=== PATIENT | female | born 1960 | race Caucasian/White ===

== ENCOUNTER 2023-06-09 10:56 | Day surgery (SDC) | payer MEDICARE, OTHER, SELFPAY ==
[2023-06-09 11:00] VITALS: BP 124/80; PULSE 92; RESP 25; TEMP 36.4; O2SAT 90
[2023-06-09] MEDS: Tropicam./Phenyleph. (1/2.5%) 5 ML BTL OS ×3 (11:13→11:27)
--- NOTE | 2023-06-09 11:31 | W.ANESPRE ---
General Info Date of Service Date Performed: 06/09/23 Height: 5 ft 1 in Weight: 119.5 kg Body Mass Index (BMI): 49.8 Surgical Procedure: Operation Date: 06/09/23 12:55 Proposed Procedure Side Surgeon p Cataract Extraction with IOL Implant Left Tomas Birmingham MD Meds Allergies and Home Medications Allergies Allergy/AdvReac Type Severity Reaction Status Date / Time No Known Allergies Allergy Unverified 06/09/23 11:06 Home Medication Medication Instructions Recorded aclidinium bromide 400 1 puff inhalation BID 06/30/15 mcg/actuation breath activated powder inhaler (Tudorza Pressair) albuterol sulfate 90 mcg/actuation 2 puff inhalation .Q4HRS PRN 06/30/15 aerosol inhaler (ProAir HFA) aspirin 325 mg tablet 325 mg PO DAILY 06/30/15 citalopram 40 mg tablet (Celexa) 40 mg PO DAILY 06/30/15 clonazepam 1 mg tablet 1 mg PO HS 06/30/15 esomeprazole magnesium 40 mg 40 mg PO DAILY 06/30/15 capsule,delayed release (Nexium) hydrocodone 5 mg-acetaminophen 325 1 tab PO DAILY PRN 06/30/15 mg tablet meclizine 25 mg tablet 25 mg PO BID 06/30/15 naproxen sodium 220 mg capsule 220 mg PO DAILY 06/30/15 (Aleve) ondansetron HCl 4 mg tablet 4 mg PO BID PRN 06/30/15 penciclovir 1 % topical cream 1 applic topical TID 06/30/15 (Denavir) ranitidine HCl 150 mg tablet 150 mg PO BID 06/30/15 (Zantac) ropinirole 4 mg tablet (Requip) 4 mg PO DAILY 06/30/15 spironolactone 25 mg tablet 25 mg PO BID 06/30/15 trazodone 50 mg tablet 50 mg PO HS 06/30/15 gabapentin 100 mg capsule 100 - 300 mg PO TID 08/04/15 duloxetine 30 mg capsule,delayed 60 mg PO DAILY 02/08/23 release empagliflozin 10 mg tablet 10 mg PO DAILY 02/08/23 (Jardiance) metformin 500 mg tablet 500 mg PO BID 02/08/23 metolanzone See Rx Instructions PO DAILY 02/08/23 potassium chloride 20 mEq 20 meq PO DAILY 02/08/23 tablet,extended release(part/cryst) pregabalin 150 mg capsule 300 mg PO BID 02/08/23 quetiapine 50 mg tablet 50 mg PO DAILY 02/08/23 venlafaxine 150 mg 150 mg PO DAILY 02/08/23 capsule,extended release 24 hr venlafaxine 75 mg capsule,extended 75 mg PO DAILY 02/08/23 release 24 hr Current Visit Medications: Current Medications Generic Name Dose Route Start Last Admin Trade Name Freq PRN Reason Stop Dose Admin Acetaminophen 1,000 mg 06/09/23 06:00 Acetaminophen 500 Mg Tab PO 07/09/23 05:59 Q4H PRN PRN Balanced Salt Solution 500 ml 06/09/23 06:00 Balanced Salt Soln.-Plus 500 Ml Bag OP 07/09/23 05:59 DIRECTED TETE Miscellaneous Medication 0 ml 06/09/23 06:00 Prednisolone 1%, Moxifloxacin 0.5%, Nepafenac 0.1% 5ml Btl OS 07/09/23 05:59 DIRECTED TETE Miscellaneous Medication 0 ml 06/09/23 06:00 06/09/23 11:27 Tropicam./Phenyleph. 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 states just at night Surgical History Surgical History History of carpal tunnel surgery bilateral History of colonoscopy History of hysteroscopy with biopsy Tobacco Smoking/Tobacco Use Status: Current every day Tobacco Type: cigarettes Smoking packs per day: 1 Smoking cigarettes per day: 20.0 Alcohol Alcohol Intake: never Substance Use Substance use: Never Substance use type: does not use Vital Signs and Lab Results Vital Signs Most Recent Vital Signs in EMR: Most Recent Vital Signs Temp Pulse Resp BP Pulse Ox 36.4 C L 92 H 25 H 124/80 90 L 06/09/23 11:00 06/09/23 11:00 06/09/23 11:00 06/09/23 11:00 06/09/23 11:00 Point of Care Results Point of Care Results: Finger Stick Blood Glucose 131 06/09/23 11:17 Lab Results Blood Type / Crossmatch: No Data to Display Complete Blood Count: No Data to Display Complete Metabolic Panel: No Data to Display Liver Function Panel: No Data to Display Coagulation Panel: No Data to Display Cardiac Panel: No Data to Display Arterial Blood Gas: No Data to Display Venous Blood Gas: No Data to Display Pancreas Panel: No Data to Display Thyroid Panel: No Data to Display Infectious Disease: No Data to Display Blood Cultures: No Data to Display Toxicology Panel: No Data to Display Anesthesia Assessment and Plan Anesthesia History Personal History: No History of Anesthesia Complications Family History: No Family History of Anesthesia Complications Exercise Tolerance Exercise Tolerance: Metabolic Equivalents<4 Pertinent Negatives Pertinent Negatives: No Symptoms of GERD, No Major Cardiovascular Symptoms or Complaints and No History of CVA/TIA Cardiac & Pulmonary Exam Cardiac Exam: Normal S1/S2 Heart Sounds Pulmonary Exam: Clear Bilateral Breath Sounds Cardiac and Pulmonary Comment:: Severe HERRERA, home O2 at night Dyspnea with any exertion Implantable Cardiac Device Does patient have a Pacemaker or an ICD?: No Airway Exam Known Difficult Airway: No Mallampati Class: 3 Mouth Opening: Normal (> 3cm) Thyromental Distance: Less than 3 cm Neck Range of Motion: Full ROM Neck Circumference: Thick Teeth Condition: Generalized Poor Dentition (edentulous top, none loose bottom per patient. ) ASA Classification ASA Score: ASA 3 Emergency Case?: No NPO Status NPO Status: NPO Clears >2 hours, Solids >8 hours Anesthesia Plan Resuscitation Status: Full Code Anesthesia Technique: MAC Anesthesia Airway Planned: Natural Airway Monitors Used: Standard Monitors Preoperative Comments:: Plan no sedation due to respiratory status
[2023-06-09 12:08] VITALS: BMI 49.8
[2023-06-09] MEDS: Lidocaine 1% Pres-Free 5 ML VIAL (12:32)
[2023-06-09] MEDS: Phenylephrine/Lidocaine (15/10) MG/ML 1 ML VIAL (12:34)
[2023-06-09] MEDS: Povidone-Iodine Ophth 30 ML BTL (12:35)
[2023-06-09] MEDS: Duovisc Viscoelastic System EACH 1 EACH (12:36)
[2023-06-09] MEDS: Balanced Salt Soln.-PLUS 500 ML BAG OP (12:36)
[2023-06-09 12:47] VITALS: BP 113/63; PULSE 93; RESP 18; TEMP 36.6; O2SAT 91
--- NOTE | 2023-06-09 12:47 | W.PM.DSUDISC ---
Date of service: 06/09/23 Time of Service: 12:47 Discharge Plan Disposition Patient Disposition: Home Discharge Details Attending Provider: Tomas Birmingham Primary Care Provider: SABRA CORDOVA Home Meds and New Rx's Prescriptions: No Action duloxetine 30 mg capsule,delayed release(DR/EC) 60 mg PO DAILY Jardiance 10 mg tablet 10 mg PO DAILY metformin 500 mg tablet 500 mg PO BID metolanzone See Rx Instructions PO DAILY Rx Instructions: 10mg tab orally daily; potassium chloride 20 mEq tablet,ER particles/crystals 20 meq PO DAILY pregabalin 150 mg capsule 300 mg PO BID quetiapine 50 mg tablet 50 mg PO DAILY venlafaxine 150 mg capsule,extended release 24hr 150 mg PO DAILY venlafaxine 75 mg capsule,extended release 24hr 75 mg PO DAILY citalopram [Celexa] 40 MG tablet 40 mg PO DAILY trazodone 50 MG tablet 50 mg PO HS aspirin 325 MG tablet 325 mg PO DAILY hydrocodone-acetaminophen 1 TAB tablet 1 tab PO DAILY PRN ondansetron HCl 4 MG tablet 4 mg PO BID PRN clonazepam 1 MG tablet 1 mg PO HS penciclovir [Denavir] 1.5 GM cream 1 applic Topical TID spironolactone 25 MG tablet 25 mg PO BID meclizine 25 MG tablet 25 mg PO BID esomeprazole magnesium [Nexium] 40 MG capsule,delayed release(DR/EC) 40 mg PO DAILY Zantac 150 MG tablet 150 mg PO BID albuterol sulfate [ProAir HFA] 8.5 GM HFA aerosol inhaler 2 puff Inhalation .Q4HRS PRN ropinirole [Requip] 4 MG tablet 4 mg PO DAILY naproxen sodium [Aleve] 220 MG capsule 220 mg PO DAILY Tudorza Pressair 400 MCG aerosol powdr breath activated 1 puff Inhalation BID gabapentin 100 MG capsule 100 - 300 mg PO TID Discharge Instructions Stand Alone Forms: Post-op Topical Cataract, Richie Richards (DSU) Discharge Orders Discharge Orders: Discharge Order (Routine); Ordered 06/09/23 Ordered By: Tomas Birmingham DS: Diagnosis Discharge Diagnosis (1) Posterior subcapsular age-related cataract of left eye: Status: Resolved (2) Cortical age-related cataract, left eye: Status: Resolved (3) Nuclear age-related cataract, left eye: Status: Resolved
--- NOTE | 2023-06-09 12:48 | ROE_ITS ---
Date of service: 06/09/23 Time of Service: 12:48 Operative Note Operative Note DATE OF PROCEDURE: 06/09/23 PRE-OP DIAGNOSIS: Nuclear/cortical/posterior subcapsular cataract, left eye POST-OP DIAGNOSIS: same PROCEDURE: Cataract extraction using phacoemulsification with intraocular lens implant, left eye SURGEON: Tomas Birmingham ANESTHESIA TYPE: Local By Surgeon and MAC Refer to Anesthesia Record PATHOLOGY: none sent COMPLICATIONS: None Patient was transported to: same day Patient's condition: stable Implants: David and David Tecnis Eyhance [id number] Indications: Progressive decreased vision due to cataract, left eye Procedure Description: CATARACT SURGERY OPERATIVE REPORT PREOPERATIVE DIAGNOSIS: 1. Nuclear/cortical/posterior subcapsular cataract, left eye POSTOPERATIVE DIAGNOSIS: Same OPERATION: 1. Cataract extraction using phacoemulsification with posterior chamber intraocular lens implant, left eye. IOL: IOL Inlayer Silver/Model: David & David Tecnis Eyhance [id number] IOL Power: + 24.5 diopters IOL Serial Number: [id number] Optic Diameter: 6.0 mm Haptic/Overall Diameter: 13.0 mm PHACO INFO: Jamin Visualaseurion Vision System with OZil and Active Fluidics Cumulative Dispersed Energy (CDE): 8.47 seconds SURGEON: Tomas Birmingham MD, MARGARITA ANESTHESIA: Monitored A [facility] (MAC), with local sub-tenon's anesthetic infiltration COMPLICATIONS: None SPECIMENS: None INDICATIONS FOR PROCEDURE: The patient is a 63-year-old lady with history of diminished visual acuity in her left eye secondary to the development of nuclear/cortical/posterior subcapsular cataract. She is significantly symptomatic that she desires cataract surgery and attempt to improve and maximize her vision. The option of cataract surgery was offered to the patient and she wished to proceed. See office notes for detailed information. PROCEDURE: The correct surgical eye was identified and marked as the left eye and the pupil was dilated in the preoperative area using mydriatics and cycloplegics. The dilated pupil size was 6.0 mm. The patient elected to proceed without oral sedation. The patient was brought to the operating room where cardiopulmonary monitoring was instituted and surgical time-out was performed, confirming the correct operative eye and IOL power. Topical anesthesia was administered and ophthalmic povidone-iodine 5% was instilled into the conjunctival fornices. The mine-ocular area was prepped with Betadine 10% solution and draped in the usual sterile fashion for intraocular surgery, including an aperture drape. A Tegaderm transparent film dressing was cut in half and used to cover the lashes and lid margins. Care was taken to sequester the lashes and lid margins under the Tegaderm dressing. A lid speculum was placed between the lids of the operative eye and the Jamin LuxOR Revalia operating microscope was maneuvered into position. Oskar scissors were then used to make a conjunctival buttonhole approximately 6mm posterior to the limbus in the inferonasal quadrant. Blunt dissection was carried out to expose bare sclera, and a blunt-tipped sub-tenon?s anesthesia cannula was introduced and passed posteriorly along the globe where non- preserved plain lidocaine was injected into posterior sub-Tenon?s space. A sideport knife was used to make a paracentesis port. Intraocular phenylephrine/lidocaine was injected into the anterior chamber.. The anterior chamber was filled with viscoelastic. A keratome knife was used to construct a 2-plane near-clear corneal tunnel extending 2.0mm into clear cornea. A flap was raised on the anterior capsule and capsulorhexis forceps were used to complete a continuous curvilinear capsulorhexis of 5.0 mm. Balanced salt solution was then used to perform cortical cleaving hydrodissection and nuclear hydrodelineation until the lens could be freely rotated within the capsular bag. The lens nucleus was then disassembled and removed within the capsular bag and iris plane using phacoemulsification. Residual cortical material was removed using the irrigation/aspiration handpiece. The posterior capsule was carefully polished to remove as much residual lens epithelial cells as safely possible. The capsular bag was then inflated and the anterior chamber deepened with viscoelastic. The lens implant described above was inserted into the capsular bag using the David and David Simplicity pre-loaded injector. A Kuglen hook was used to dial the IOL into position. Residual viscoelastic was then removed first from posterior to the IOL, then from the anterior chamber using the I/A handpiece. The lens implant was noted to center nicely within the capsular bag. The incisions were stromally hydrated, and the anterior chamber was reformed using BSS. Then 0.5cc of moxifloxacin 1.0mg/ml were injected into the capsular bag and anterior chamber. The incisions were checked with a Weck spear and found to be secure. Several drops of ophthalmic povidone-iodine 5% were then applied to the eye followed by two drops of Imprimis combination prednisolone/moxifloxacin/nepafenac solution. The drapes were removed and a clear plastic protective eye shield was placed over the eye. The patient was then returned to Same Day Surgery in stable condition.
--- NOTE | 2023-06-09 13:05 | W.ANESPOSTOP ---
Postoperative Evaluation Date, Time and Location Date Performed: 06/09/23 Time Performed: 13:06 Patient Location: Day Surgery Unit Vital Signs Most Recent Imported Vital Signs: Most Recent Vital Signs Temp Pulse Resp BP Pulse Ox 36.6 C 93 H 18 113/63 91 L 06/09/23 12:47 06/09/23 12:47 06/09/23 12:47 06/09/23 12:47 06/09/23 12:47 Pain Score Most Recent Pain Score: Most Recent Pain Score Pain Level 0 06/09/23 12:47 Assessment Mental Status: Awake (Alert & Oriented to Patient Baseline) Airway and Respiratory Function: Patent airway with normal (patient baseline) respiratory exam Cardiovascular Function: Hemodynamically Stable Hydration Status: Adequately Hydrated Nausea & Vomiting: No Nausea or Vomiting Pain: Pt. Denies Any Pain Peripheral Nerve Block: Patient did not receive a nerve block
== END 2023-06-09 13:08 | disposition home or self-care (01) ==
LOC: SUR 10:58
PROVIDERS: PCP Family Medicine; Visit Provider Ophthalmology
PROC: (CPT 66984; principal; 2023-06-09 12:45)
DX: H25.042 Posterior subcapsular polar age-related cataract, left eye (principal); H25.012 Cortical age-related cataract, left eye; H25.12 Age-related nuclear cataract, left eye; F17.210 Nicotine dependence, cigarettes, uncomplicated
CPT/HCPCS: 66984; V2632

== ENCOUNTER 2023-06-23 07:24 | Day surgery (SDC) | payer MEDICARE, OTHER, SELFPAY ==
[2023-06-23 07:54] VITALS: BP 143/83; PULSE 95; RESP 22; TEMP 36.6; O2SAT 94
[2023-06-23] MEDS: Tropicam./Phenyleph. (1/2.5%) 5 ML BTL OD ×3 (08:02→08:12)
--- NOTE | 2023-06-23 08:17 | W.ANESPRE ---
General Info Date of Service Date Performed: 06/23/23 Height: 5 ft 1 in Weight: 117 kg Body Mass Index (BMI): 48.7 Surgical Procedure: Operation Date: 06/23/23 09:10 Proposed Procedure Side Surgeon p Cataract Extraction with IOL Implant Right Tomas Birmingham MD Meds Allergies and Home Medications Allergies Allergy/AdvReac Type Severity Reaction Status Date / Time No Known Allergies Allergy Verified 06/23/23 07:54 Home Medication Medication Instructions Recorded albuterol sulfate 90 mcg/actuation 2 puff inhalation .Q4HRS PRN 06/30/15 aerosol inhaler (ProAir HFA) aspirin 325 mg tablet 81 mg PO DAILY 06/30/15 meclizine 25 mg tablet 25 mg PO BID 06/30/15 ropinirole 4 mg tablet (Requip) 4 mg PO DAILY 06/30/15 spironolactone 25 mg tablet 25 mg PO DAILY 06/30/15 empagliflozin 10 mg tablet 10 mg PO DAILY 02/08/23 (Jardiance) metformin 500 mg tablet 500 mg PO BID 02/08/23 metolanzone See Rx Instructions PO DAILY 02/08/23 potassium chloride 20 mEq 20 meq PO DAILY 02/08/23 tablet,extended release(part/cryst) pregabalin 150 mg capsule 300 mg PO BID 02/08/23 quetiapine 50 mg tablet 50 mg PO DAILY 02/08/23 venlafaxine 150 mg 150 mg PO DAILY 02/08/23 capsule,extended release 24 hr venlafaxine 75 mg capsule,extended 75 mg PO DAILY 02/08/23 release 24 hr Current Visit Medications: Current Medications Generic Name Dose Route Start Last Admin Trade Name Freq PRN Reason Stop Dose Admin Acetaminophen 1,000 mg 06/23/23 06:00 Acetaminophen 500 Mg Tab PO 07/23/23 05:59 Q4H PRN PRN Balanced Salt Solution 500 ml 06/23/23 06:00 Balanced Salt Soln.-Plus 500 Ml Bag OP 07/23/23 05:59 DIRECTED TETE Miscellaneous Medication 0 ml 06/23/23 06:00 Prednisolone 1%, Moxifloxacin 0.5%, Nepafenac 0.1% 5ml Btl OD 07/23/23 05:59 DIRECTED TETE Miscellaneous Medication 0 ml 06/23/23 06:00 06/23/23 08:12 Tropicam./Phenyleph. 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 states just at night Medical History Comments:: Uses 4 L of Oxygen Surgical History Surgical History History of carpal tunnel surgery bilateral History of colonoscopy History of hysteroscopy with biopsy Tobacco Smoking/Tobacco Use Status: Current every day Tobacco Type: cigarettes Smoking packs per day: 1 Smoking cigarettes per day: 20.0 Alcohol Alcohol Intake: never Substance Use Substance use: Never Substance use type: does not use Vital Signs and Lab Results Vital Signs Most Recent Vital Signs in EMR: Most Recent Vital Signs Temp Pulse Resp BP Pulse Ox 36.6 C 95 H 22 143/83 H 94 06/23/23 07:54 06/23/23 07:54 06/23/23 07:54 06/23/23 07:54 06/23/23 07:54 Point of Care Results Point of Care Results: Finger Stick Blood Glucose 150 06/23/23 07:47 Lab Results Blood Type / Crossmatch: No Data to Display Complete Blood Count: No Data to Display Complete Metabolic Panel: No Data to Display Liver Function Panel: No Data to Display Coagulation Panel: No Data to Display Cardiac Panel: No Data to Display Arterial Blood Gas: No Data to Display Venous Blood Gas: No Data to Display Pancreas Panel: No Data to Display Thyroid Panel: No Data to Display Infectious Disease: No Data to Display Blood Cultures: No Data to Display Toxicology Panel: No Data to Display Anesthesia Assessment and Plan Anesthesia History Personal History: No History of Anesthesia Complications Family History: No Family History of Anesthesia Complications Exercise Tolerance Exercise Tolerance: Metabolic Equivalents<4 Pertinent Negatives Pertinent Negatives: No Symptoms of GERD Cardiac & Pulmonary Exam Cardiac Exam: Normal S1/S2 Heart Sounds Pulmonary Exam: Clear Bilateral Breath Sounds Implantable Cardiac Device Does patient have a Pacemaker or an ICD?: No Airway Exam Known Difficult Airway: No Mallampati Class: 3 Mouth Opening: Normal (> 3cm) Thyromental Distance: Less than 3 cm Neck Range of Motion: Full ROM Neck Circumference: Thick Teeth Condition: Generalized Poor Dentition (edentulous top, none loose bottom per patient. ) ASA Classification ASA Score: ASA 3 Emergency Case?: No NPO Status NPO Status: NPO Clears >2 hours, Solids >8 hours Anesthesia Plan Resuscitation Status: Full Code Anesthesia Technique: MAC Anesthesia Airway Planned: Natural Airway Monitors Used: Standard Monitors Preoperative Comments:: No sedation as previous for bmi and copd
[2023-06-23 08:21] VITALS: BMI 48.7
[2023-06-23] MEDS: Balanced Salt Soln.-PLUS 500 ML BAG OP (09:07)
[2023-06-23] MEDS: Tetracaine 0.5% 4 ML BTL OD (09:08)
[2023-06-23] MEDS: Duovisc Viscoelastic System EACH 1 EACH (09:09)
[2023-06-23] MEDS: Lidocaine 1% Pres-Free 5 ML VIAL (09:10)
[2023-06-23] MEDS: Phenylephrine/Lidocaine (15/10) MG/ML 1 ML VIAL (09:11)
[2023-06-23] MEDS: Povidone-Iodine Ophth 30 ML BTL (09:12)
[2023-06-23 09:34] VITALS: BP 113/72; PULSE 95; RESP 16; TEMP 36.4; O2SAT 97
--- NOTE | 2023-06-23 09:34 | W.PM.DSUDISC ---
Date of service: 06/23/23 Time of Service: 09:35 Discharge Plan Disposition Patient Disposition: Home Discharge Details Attending Provider: Tomas Birmingham Primary Care Provider: SABRA CORDOVA Home Meds and New Rx's Prescriptions: No Action Jardiance 10 mg tablet 10 mg PO DAILY metformin 500 mg tablet 500 mg PO BID metolanzone See Rx Instructions PO DAILY Rx Instructions: 10mg tab orally daily; potassium chloride 20 mEq tablet,ER particles/crystals 20 meq PO DAILY pregabalin 150 mg capsule 300 mg PO BID quetiapine 50 mg tablet 50 mg PO DAILY venlafaxine 150 mg capsule,extended release 24hr 150 mg PO DAILY venlafaxine 75 mg capsule,extended release 24hr 75 mg PO DAILY aspirin 325 MG tablet 81 mg PO DAILY spironolactone 25 MG tablet 25 mg PO DAILY meclizine 25 MG tablet 25 mg PO BID albuterol sulfate [ProAir HFA] 8.5 GM HFA aerosol inhaler 2 puff Inhalation .Q4HRS PRN ropinirole [Requip] 4 MG tablet 4 mg PO DAILY Discharge Instructions Stand Alone Forms: Post-op Topical Cataract, Richie Richards ([facility]) Discharge Orders Discharge Orders: Discharge Order (Routine); Ordered 06/23/23 Ordered By: Tomas Birmingham DS: Diagnosis Discharge Diagnosis (1) Nuclear age-related cataract, right eye: Status: Resolved (2) Cortical age-related cataract, right eye: Status: Resolved (3) Posterior subcapsular age-related cataract, right eye: Status: Resolved
--- NOTE | 2023-06-23 09:36 | ROE_ITS ---
Date of service: 06/23/23 Time of Service: 09:36 Operative Note Operative Note DATE OF PROCEDURE: 06/23/23 PRE-OP DIAGNOSIS: Nuclear/cortical/posterior subcapsular cataract, right eye POST-OP DIAGNOSIS: same PROCEDURE: Cataract extraction using phacoemulsification with intraocular lens implant, right eye SURGEON: Tomas Birmingham ANESTHESIA TYPE: Local By Surgeon and MAC Refer to Anesthesia Record ESTIMATED BLOOD LOSS: 0 PATHOLOGY: none sent COMPLICATIONS: None Patient was transported to: same day Patient's condition: stable Implants: [employer] Eyhance [id number] Indications: Progressive visual loss due to cataract, right eye Procedure Description: CATARACT SURGERY OPERATIVE REPORT PREOPERATIVE DIAGNOSIS: 1. Nuclear/cortical/posterior subcapsular cataract, right eye POSTOPERATIVE DIAGNOSIS: Same OPERATION: 1. Cataract extraction using phacoemulsification with posterior chamber intraocular lens implant, right eye. IOL: IOL Precision Honing Machine Operator/Model: [employer] Eyhance [id number] IOL Power: + 25.5 diopters IOL Serial Number: [id number] Optic Diameter: 6.0mm Haptic/Overall Diameter: 13.0mm PHACO INFO: Jamin Voxliurion Vision System with OZil and Active Fluidics Cumulative Dispersed Energy (CDE): 4.78 seconds SURGEON: Tomas Birmingham MD, MARGARITA ANESTHESIA: Monitored Anesthesia Care (MAC), with local sub-tenon's anesthetic infiltration COMPLICATIONS: None SPECIMENS: None INDICATIONS FOR PROCEDURE: The patient is a 63-year-old lady with history of diminished visual acuity in her right eye secondary to the development of nuclear/cortical/posterior subcapsular cataract. She is significantly symptomatic that she desires cataract surgery and attempt to improve and maximize her vision. The option of cataract surgery was offered to the patient and she wished to proceed. See office notes for detailed information. PROCEDURE: The correct surgical eye was identified and marked as the right eye and the pupil was dilated in the preoperative area using mydriatics and cycloplegics. The dilated pupil size was 6.0 mm. The patient elected to proceed without oral sedation. The patient was brought to the operating room where cardiopulmonary monitoring was instituted and surgical time-out was performed, confirming the correct operative eye and IOL power. Topical anesthesia was administered and ophthalmic povidone-iodine 5% was instilled into the conjunctival fornices. The mine-ocular area was prepped with Betadine 10% solution and draped in the usual sterile fashion for intraocular surgery, including an aperture drape. A Tegaderm transparent film dressing was cut in half and used to cover the lashes and lid margins. Care was taken to sequester the lashes and lid margins under the Tegaderm dressing. A lid speculum was placed between the lids of the operative eye and the Jamin LuxOR Revalia operating microscope was maneuvered into position. Oskar scissors were then used to make a conjunctival buttonhole approximately 6mm posterior to the limbus in the inferonasal quadrant. Blunt dissection was carried out to expose bare sclera, and a blunt-tipped sub-tenon?s anesthesia cannula was introduced and passed posteriorly along the globe where non- preserved plain lidocaine was injected into posterior sub-Tenon?s space. A sideport knife was used to make a paracentesis port. Intraocular phenylephrine/lidocaine was injected into the anterior chamber. The anterior chamber was filled with viscoelastic. A keratome knife was used to construct a 2-plane clear corneal tunnel extending 2.0mm into clear cornea. A flap was raised on the anterior capsule and capsulorhexis forceps were used to complete a continuous curvilinear capsulorhexis of 4.8 mm. Balanced salt solution was then used to perform cortical cleaving hydrodissection and nuclear hydrodelineation until the lens could be freely rotated within the capsular bag. The lens nucleus was then disassembled and removed within the capsular bag and iris plane using phacoemulsification. Residual cortical material was removed using the I/A handpiece. The posterior capsule was carefully polished to remove as much residual lens epithelial cells as safely possible. The capsular bag was then inflated and the anterior chamber deepened with cohesive viscoelastic. The lens implant described above was inserted into the capsular bag using the [employer] Simplicity pre- loaded injector. A Kuglen hook was used to dial the IOL into position. Residual viscoelastic was then removed first from posterior to the IOL, then from the anterior chamber using the I/A handpiece. The lens implant was noted to center nicely within the capsular bag. The incisions were stromally hydrated, and the anterior chamber was reformed using BSS. Then 0.5cc of moxifloxacin 1.0mg/ml were injected into the capsular bag and anterior chamber. The incisions were checked with a Weck spear and found to be secure. Several drops of ophthalmic povidone-iodine 5% were then applied to the eye followed by two drops of Imprimis combination prednisolone/moxifloxacin/nepafenac solution. The drapes were removed and a clear plastic protective eye shield was placed over the eye. The patient was then returned to [facility] Day [facility] in stable condition.
--- NOTE | 2023-06-23 09:54 | W.ANESPOSTOP ---
Postoperative Evaluation Date, Time and Location Date Performed: 06/23/23 Time Performed: 09:44 Patient Location: Day Surgery Unit Vital Signs Most Recent Imported Vital Signs: Most Recent Vital Signs Temp Pulse Resp BP Pulse Ox 36.4 C L 95 H 16 113/72 97 06/23/23 09:34 06/23/23 09:34 06/23/23 09:34 06/23/23 09:34 06/23/23 09:34 Pain Score Most Recent Pain Score: Most Recent Pain Score Pain Level 0 06/23/23 09:34 Assessment Mental Status: Awake (Alert & Oriented to Patient Baseline) Airway and Respiratory Function: Patent airway with normal (patient baseline) respiratory exam Cardiovascular Function: Hemodynamically Stable Hydration Status: Adequately Hydrated Nausea & Vomiting: No Nausea or Vomiting Pain: Pt. Denies Any Pain Peripheral Nerve Block: Patient did not receive a nerve block
== END 2023-06-23 09:55 | disposition home or self-care (01) ==
LOC: SUR 07:25
PROVIDERS: PCP Family Medicine; Visit Provider Ophthalmology
PROC: (CPT 66984; principal; 2023-06-23 09:00)
DX: H25.11 Age-related nuclear cataract, right eye (principal); H25.011 Cortical age-related cataract, right eye; H25.041 Posterior subcapsular polar age-related cataract, right eye; F17.200 Nicotine dependence, unspecified, uncomplicated; E66.01 Morbid (severe) obesity due to excess calories
CPT/HCPCS: 66984; V2632

== ENCOUNTER 2023-10-30 04:06 | Outpatient (CLI) | payer MEDICARE, OTHER, SELFPAY ==
--- NOTE | 2023-10-30 10:08 | W.6MWT ---
Date of service: 10/30/23 Time of Service: 08:44 6 Minute Walk Test Note: 6 Minute Walk Test Distance walked: 200 feet Desaturations: Lowest SpO2 on 5LPM supplemental O2 was to 90% Heart rate changes: resting rate 106 to 122 at exertion. Recommendation: 5LPM supplemental O2 was able to maintain SpO2 >88% with exertion. Trish Crisostomo MD Pulmonary & Critical Care Medicine
== END 2023-10-30 04:07 | disposition home or self-care (01) ==
LOC: RT 04:06
PROVIDERS: PCP Family Medicine; Visit Provider Family Medicine
DX: J44.9 Chronic obstructive pulmonary disease, unspecified (principal)
CPT/HCPCS: 94618